=== PATIENT | female | born 1985 | race Caucasian/White ===

== ENCOUNTER 2019-08-10 06:43 | Day surgery (SDC) | payer BC ==
[~2019-08-10] VITALS: Ht 170.2 cm; Wt 69.4 kg
[2019-08-10 06:45] VITALS: BP_SYST 105
--- NOTE | 2019-08-10 06:45 | NUR ---
Pt ambulatory to bed 8 for evaluation
[2019-08-10] MEDS ORDERED: METOCLOPRAMIDE HCL 10 MG/2 ML VIAL IVP ONE (07:00)
[2019-08-10] MEDS ORDERED: NACL 0.9% 1,000 ML IV ONE ×2 (07:00→08:45)
[2019-08-10] MEDS ORDERED: ACETAMINOPHEN 325 MG TABLET PO ONE (07:00)
[2019-08-10] MEDS ORDERED: PREN-170 PO (07:07)
[2019-08-10 07:58] LABS: BASOPHILS # (AUTO) 0.1 K/uL (0.0-0.2); BASOPHILS % (AUTO) 0.7 % (0.0-2.0); EOSINOPHILS # (AUTO) 0.2 K/uL (0.0-0.4); EOSINOPHILS % (AUTO) 2.7 % (0.0-4.0); HEMATOCRIT 33.5 % (36-48); HEMOGLOBIN 11.6 g/dL (12.0-16.0); LYMPHOCYTES # (AUTO) 2.3 K/uL (1.0-5.5); LYMPHOCYTES % (AUTO) 29.9 % (20.5-51.5); MEAN CORPUSCULAR HEMOGLOBIN 33 pg (27-31); MEAN CORPUSCULAR HGB CONC 35 % (32-36); MEAN CORPUSCULAR VOLUME 94 fL (79.0-98.0); MONOCYTES # (AUTO) 0.5 K/uL (0.0-1.0); MONOCYTES % (AUTO) 6.5 % (1.7-9.3); NEUTROPHILS # (AUTO) 4.7 K/uL (1.8-7.7); NEUTROPHILS % (AUTO) 60.2 % (40.0-70.0); PLATELET COUNT (AUTO) 202 K/uL (130-430); RED BLOOD CELL COUNT(AUTO) 3.56 MIL/uL (4.2-6.2); RED CELL DISTRIBUTION WIDTH 13.3 % (9.0-15.0); WHITE BLOOD COUNT (AUTO) 7.8 K/uL (4.8-10.8)
[2019-08-10 08:07] LABS: CALCIUM 8.4 mg/dL (8.4-11.0); CREATININE 0.68 mg/dL (0.55-1.30); POTASSIUM 4.4 mmol/L (3.5-5.1)
[2019-08-10 08:12] LABS: PROTHROMBIN TIME 9.9 SECS (9.5-12.5)
[2019-08-10 08:33] LABS: ALBUMIN 3.5 g/dL (3.4-4.8); TOTAL BILIRUBIN 0.2 mg/dL (0.0-1.0)
[2019-08-10] MEDS ORDERED: PIPERACILLIN/TAZO 3.375 GM in NS 50 ML IV ONE (08:45)
[2019-08-10] MEDS ORDERED: DIPHENHYDRAMINE INJ 50 MG/ML VIAL IVP ONE (08:45)
[2019-08-10] MEDS ORDERED: MORPHINE 4 MG/ML INJ. SYRINGE IVP ONE (08:45)
--- NOTE | 2019-08-10 09:06 | NUR ---
RN obtained iv access tothe Rt ac in one attmept with 22g. Medication given. pt is refusing morphine reglan and zofran . pt received Benadryl. she is now sleeping well.
[2019-08-10] MEDS ORDERED: PIPERACILLIN/TAZOBACTAM 3.375 GM/VIAL (ZOSYN) IV ONE (10:21)
--- NOTE | 2019-08-10 10:30 | NUR ---
Pt to be admitted to OB under MD Santiago. pt is stable. Pt will go to room 116.
--- NOTE | 2019-08-10 11:00 | NUR ---
Pt taken down Via w/c by RN, and accompanied with of pt. pt is awake , alert, but feeling stable since the Benedryl. Report given to Erica DELATORRE in OB dept. pt place safetly in bed. pt able to get up and stand on her own with minor assist. IV intact for procedure.
[2019-08-10] MEDS ORDERED: KETOROLAC TROMETHAMINE 30 MG VIAL IVP ONE (13:15)
[2019-08-10] MEDS ORDERED: BUPIVACAINE /EPINEPHRINE/PF 0.5% 30 ML VIAL INJ ONE (13:15)
[2019-08-10] MEDS ORDERED: MIDAZOLAM HCL 5 MG/5 ML VIAL IVP ONE (13:15)
[2019-08-10] MEDS ORDERED: fentaNYL CITRATE/PF 100 MCG/2 ML AMP IVP ONE (13:15)
[2019-08-10] MEDS ORDERED: NS 1000 ML IV.SOLN IV ONE (13:15)
[2019-08-10] MEDS ORDERED: ROCURONIUM BROMIDE 10 MG/ML (ZEMURON) IV ONE (13:15)
[2019-08-10] MEDS ORDERED: SEVOFLURANE 15 MIN GAS INH ONE (13:15)
[2019-08-10] MEDS ORDERED: NS IRRIG SOLN 1000 ML IR ONE (13:15)
[2019-08-10] MEDS ORDERED: LR 1,000 ML IV.SOLN IV ONE (13:15)
[2019-08-10] MEDS ORDERED: PROPOFOL 200MG/ 20ML VIAL (DIPRIVAN) IV ONE (13:15)
[2019-08-10] MEDS ORDERED: fentaNYL CITRATE/PF 100 MCG/2 ML AMP IVP PRN ×2 (14:15)
[2019-08-10] MEDS ORDERED: ONDANSETRON HCL 4 MG/2 ML VIAL IVP PRN (14:15)
[2019-08-10] MEDS ORDERED: ONDANSETRON HCL 4 MG/2 ML VIAL IM PRN (14:45)
[2019-08-10] MEDS ORDERED: KETOROLAC TROMETHAMINE 30 MG VIAL IVP PRN (14:45)
[2019-08-10] MEDS ORDERED: HYDROcodone/ACETAMIN 5-325 MG TAB (NORCO/ VICODIN) PO PRN (14:45)
[2019-08-10] MEDS ORDERED: OXYCODONE/ACETAMINOPHEN 5-325 TABLET PO PRN (14:45)
[2019-08-10] MEDS ORDERED: fentaNYL CITRATE/PF 100 MCG/2 ML AMP ONE (15:37)
[2019-08-10] MEDS ORDERED: SIMETHICONE 80 MG TAB.CHEW PO SCH (17:00)
[2019-08-12 18:45] VITALS: BP_SYST 118
== END 2019-08-10 20:20 | disposition home or self-care (01) ==
LOC: SED 06:43 → SDS 08:49 → SMU 08:56 → SPU 11:23 → SDS 20:20
PROVIDERS: ATTEND Specialist
DX: O00.90 Unspecified ectopic pregnancy without intrauterine pregnancy (principal); O99.511 Diseases of the respiratory system complicating pregnancy, first trimester; J45.909 Unspecified asthma, uncomplicated; O34.81 Maternal care for other abnormalities of pelvic organs, first trimester; N83.202 Unspecified ovarian cyst, left side; Z3A.01 Less than 8 weeks gestation of pregnancy; Z79.01 Long term (current) use of anticoagulants; Z98.890 Other specified postprocedural states
CPT/HCPCS: 36415; 59151; 76856; 80053; 84702; 85025; 85610; 85730; 86900; 86901; 87040; 88305; 96361; 96365; 96375; 99285; C1727; C1782; J1200; J1885; J2250; J2543; J2704; J3010; J3490; J7030; J7120

== ENCOUNTER 2019-12-17 13:19 | Outpatient (CLI) | payer BC ==
[~2019-12-17 13:19] MED LIST: PREN-170 PO
[2019-12-17] MEDS ORDERED: IOHEXOL 50 ML IV ONE (13:40)
== END 2019-12-17 21:38 | disposition home or self-care (01) ==
LOC: SRD 13:19
PROVIDERS: ATTEND Specialist
DX: Z90.721 Acquired absence of ovaries, unilateral (principal)
CPT/HCPCS: 74740; C1751; Q9967